=== PATIENT | male | born 1970 | race Two or more races ===

== ENCOUNTER 2025-04-03 09:25 | Emergency (ER) | payer OTHER ==
[~2025-04-03] VITALS: Ht 172.7 cm; Wt 97.1 kg
[2025-04-03] MEDS ORDERED: NORVASC5 MG PO (09:29)
[2025-04-03] MEDS ORDERED: PEPCID AC20 MG (09:29)
[2025-04-03] MEDS ORDERED: PROTONIX40 MG PO (09:29)
[2025-04-03] MEDS ORDERED: DIOVAN160 M1 PO (09:29)
[2025-04-03] MEDS ORDERED: LIPITOR20 MG PO (09:30)
[2025-04-03] MEDS ORDERED: BREO ELLIPTA I1 EACH IH (09:31)
[2025-04-03] MEDS ORDERED: FAMOtidine 10 MG/ML (4ML VIAL) IV ONE (09:45)
[2025-04-03] MEDS ORDERED: ONDANSETRON HCL 2 MG/ML VIAL IV ONE (09:45)
[2025-04-03] MEDS ORDERED: 0.9 % SODIUM CHLORIDE 1,000 ML IV ONE (09:45)
[2025-04-03] MEDS ORDERED: MORPHINE SULFATE 4 MG/ML CARTRIDGE IV ONE (09:45)
[2025-04-03] MEDS ORDERED: ONDANSETRON HCL 2 MG/ML VIAL ONE (10:07)
[2025-04-03] MEDS ORDERED: FAMOTIDINE/PF 20 MG/2 ML VIAL ONE (10:07)
[2025-04-03 10:38] LABS: BASO % 0.4 % (0.1-1.2); EOS # 0.04 (0.04-0.54); EOS % 0.4 % (0.7-7.0); LYMPH # 0.57 (1.18-3.74); LYMPH % 5.9 % (19.3-53.1); MEAN PLATELET VOLUME 8.90 fl (9.4-12.4); MONO # 0.43 (0.24-0.82); MONO % 4.4 % (4.7-12.5); NEUT # 8.61 (1.56-6.13); NEUT % 88.5 % (34.0-71.1); RED CELL DISTRIBUTION WIDTH 13.2 % (11.6-14.4)
[2025-04-03 11:04] LABS: INR 1.03
[2025-04-03 11:10] LABS: ALT/SGPT 36.0 U/L (12-78); AST/SGOT 26.0 U/L (15-37); BILIRUBIN TOTAL 0.8 mg/dL (0.3-1.2); BILIRUBIN,CONJUGATED 0.19 mg/dL (0.0-0.2); BUN CREA RATIO 16.0 (7.0-25.0); CREATININE SERUM 0.86 mg/dL (0.70-1.30); GFR 92.67; GLOBULINA 3.6 G/DL (2.4-3.5); GLUCOSE FASTING 148.0 mg/dL (65-100); OSMOLALITY SERUM 284.0 MOSM/KG (275-295)
[2025-04-03 11:39] LABS: URINE APPEARANCE Clear; URINE BILIRRUBIN Negative (NEGATIVE); URINE BLOOD Negative; URINE COLOR Yellow; URINE GLUCOSE Negative (NEGATIVE); URINE KETONE 15 (NEGATIVE); URINE LEUKOCYTE Negative; URINE NITRATE Negative; URINE PROTEIN Trace (NEGATIVE); URINE UROBILINOGEN 0.2 E.U./dl
[2025-04-03 11:44] LABS: URINE EPITHELIAL CELLS 2.1 uL (0.0-38.8); URINE RBC 3.3 uL (0.0-20.8); URINE WBC 3.2 uL (0.0-23.2)
[2025-04-03 11:49] LABS: URINE BACTERIA 3.5 uL (0.0-1933); URINE CAST 0.58 uL (0.0-1.40)
[2025-04-03] MEDS ORDERED: CIPRO500 MG PO (12:04)
[2025-04-03] MEDS ORDERED: PROBIOTIC1 EAC2 PO (12:04)
[2025-04-03] MEDS ORDERED: PEPCID AC20 MG PO (12:04)
[2025-04-03] MEDS ORDERED: METRONIDAZOLE500 MG PO (12:04)
[2025-04-03] MEDS ORDERED: DICY20TA PO (12:04)
[2025-04-03] MEDS ORDERED: KETOROLAC TROMETHAMINE 30 MG VIAL IV ONE (12:45)
[2025-04-03] MEDS ORDERED: KETOROLAC TROMETHAMINE 30 MG VIAL ONE (12:49)
== END 2025-04-03 13:28 | disposition home or self-care (01) ==
LOC: ER 09:25
PROVIDERS: General Practice
DX: R10.11 Right upper quadrant pain (principal); R10.9 Unspecified abdominal pain; I10 Essential (primary) hypertension; E11.9 Type 2 diabetes mellitus without complications
CPT/HCPCS: 36415; 74176; 96365; 96366; 99284; J1885; J2270; J2405; J3490; J7030